=== PATIENT | male | born 1980 | race Caucasian/White ===

== ENCOUNTER 2022-04-28 19:35 | Emergency (ER) | payer OTHER ==
[2022-04-28 19:41] VITALS: BP 123/75; PULSE 89; RESP 18; TEMP 97.8; BMI 30.4
[2022-04-28] MEDS ORDERED: PIPERACILLIN/TAZOB 3.375 GM 3.375 GM in DEXTROSE 5%-WATER - 50 ML IVPB ONE (20:27)
[2022-04-28] MEDS ORDERED: VANCOMYCIN 1 GM in D5W (PRE-DOCKED) 1,000 MG/250 ML IVPB ONE (20:27)
[2022-04-28] MEDS ORDERED: VANCOMYCIN 1,000 MG VIAL (RESTRICTED TO ID ONLY) ONE (20:37)
[2022-04-28] MEDS ORDERED: PIPERACILLIN/TAZOBACTAM 3.375 GM VIAL IVPB ONE (20:37)
[2022-04-28 21:30] LABS: HEMATOCRIT 45.6 % (35.4-49); HEMOGLOBIN 15.4 G/dL (11.7-16.9); MCH 29.7 pg (25.7-33.7); MCHC 33.7 g/dl (32.0-35.9); MEAN CELL VOLUME 88.2 fl (80-96); MEAN PLT VOLUME 7.8 fl (7.5-11.1); PLATELET COUNT 218.9 10^3/uL (134-434); RBC 5.17 10^6/uL (4.00-5.60); RDW 13.8 % (11.9-15.9); WHITE BLOOD COUNT 10.8 10^3/uL (4.0-10.8)
== END 2022-04-28 23:43 | disposition home or self-care (01) ==
LOC: FER 19:35
PROC: 3E033GC Introduction of Other Therapeutic Substance into Peripheral Vein, Percutaneous Approach (ICD-10-PCS; principal; 2022-04-28)
DX: L03.114 Cellulitis of left upper limb (principal)
CPT/HCPCS: 36415; 73070-TC-LT-FY; 85027; 99284-25

== ENCOUNTER 2024-03-06 22:06 | Emergency (ER) | payer BC ==
[2024-03-06 22:29] VITALS: BP 123/61; PULSE 70; RESP 16; TEMP 97.3; BMI 27.0
[2024-03-06 22:59] LABS: INR 1.02 (0.83-1.09); PROTHROMBIN TIME (PATIENT) 11.6 SEC (9.7-13.0)
[2024-03-06 23:01] LABS: HEMATOCRIT 47.3 % (35.4-49); HEMOGLOBIN 15.7 G/dL (11.7-16.9); MCH 28.6 pg (25.7-33.7); MCHC 33.1 g/dl (32.0-35.9); MEAN CELL VOLUME 86.4 fl (80-96); MEAN PLT VOLUME 8.6 fl (7.5-11.1); PLATELET COUNT 244.5 10^3/uL (134-434); RBC 5.48 10^6/uL (4.00-5.60); RDW 15.1 % (11.9-15.9); WHITE BLOOD COUNT 7.2 10^3/uL (4.0-10.8)
[2024-03-06 23:11] LABS: ALBUMIN 4.3 g/dl (3.4-5.0); CALCIUM 9.7 mg/dl (8.5-10.1); CREATININE 1.1 mg/dl (0.6-1.3); POTASSIUM 3.6 mmol/L (3.5-5.1); TOT PROT 6.9 g/dl (6.4-8.2)
[2024-03-06] MEDS ORDERED: METHOCARBAMOL 500 MG TABLET ONE (23:25)
[2024-03-06] MEDS ORDERED: LIDOCAINE 5% TOPICAL PATCH ONE (23:26)
[2024-03-06] MEDS: LIDOCAINE PATCH REMOVAL MC SCH (23:49)
[2024-03-06] MEDS: METHOCARBAMOL 500 MG TABLET PO ONE (23:50)
[2024-03-06] MEDS: IBUPROFEN 600 MG TABLET (FP) PO ONE (23:58)
[2024-03-06] MEDS: LIDOCAINE 5% TOPICAL PATCH TP ONE (23:59)
== END 2024-03-06 23:59 | disposition home or self-care (01) ==
LOC: FER 22:06
DX: S29.011A Strain of muscle and tendon of front wall of thorax, initial encounter (principal); X50.1XXA Overexertion from prolonged static or awkward postures, initial encounter
CPT/HCPCS: 36415; 71046-TC-FY; 80053; 84484; 85027; 85610; 93005; 99285-25

== ENCOUNTER 2024-06-23 04:13 | Emergency (ER) | payer SELFPAY ==
[2024-06-23 04:31] VITALS: BP 122/82; PULSE 74; RESP 16; TEMP 99.1; BMI 27.1
[2024-06-23 09:40] LABS: THROAT:GRP A STREP NOT DETECTED (NOTDETECTED)
== END 2024-06-23 05:38 | disposition home or self-care (01) ==
LOC: FER 04:13
DX: J20.9 Acute bronchitis, unspecified (principal); R05.9 Cough, unspecified; R50.9 Fever, unspecified; R09.3 Abnormal sputum
CPT/HCPCS: 0241U-QW; 87651; 99283-25